=== PATIENT | male | born 1960 | race African-American/Black ===

== ENCOUNTER 2021-10-11 10:08 | Emergency (ER) | payer BC, OTHER ==
[2021-10-11] MEDS ORDERED: Dexamethasone 10 MG/ML VIAL ONE (10:55)
[2021-10-11] MEDS ORDERED: Ketorolac Tromethamine 30 MG/ML VIAL ONE (10:55)
== END 2021-10-11 11:35 | disposition home or self-care (01) ==
LOC: ERS 10:08
DX: M25.562 Pain in left knee (principal); E11.9 Type 2 diabetes mellitus without complications; I10 Essential (primary) hypertension; Z79.899 Other long term (current) drug therapy; Z79.84 Long term (current) use of oral hypoglycemic drugs
CPT/HCPCS: 96372; J1100; J1885